=== PATIENT | female | born 1990 | race Caucasian/White ===

== ENCOUNTER → 2023-06-18 08:21 | Outpatient (BNVA) | payer OTHER, SELFPAY | PROVIDERS: Visit Provider Podiatrist Foot & Ankle Surgery | DX: M79.672 Pain in left foot (principal); Q66.89 Other specified congenital deformities of feet | CPT/HCPCS: 73630 ==

== ENCOUNTER 2023-07-23 14:35 | Outpatient (RCR) | payer OTHER, SELFPAY | END 2023-07-29 23:59 | disposition home or self-care (01) | LOC: SPT 14:35 | PROVIDERS: Visit Provider Registered Nurse | DX: R10.2 Pelvic and perineal pain (principal); N39.46 Mixed incontinence | CPT/HCPCS: 97110; 97161 ==

== ENCOUNTER 2023-07-30 06:00 | Outpatient (RCR) | payer OTHER, SELFPAY | END 2023-08-27 23:59 | disposition home or self-care (01) | LOC: SPT 06:00 | PROVIDERS: Visit Provider Registered Nurse | DX: R10.2 Pelvic and perineal pain (principal); N39.46 Mixed incontinence | CPT/HCPCS: 97110; 97530 ==

== ENCOUNTER 2023-08-27 11:53 | Oncology outpatient (recurring) (ONCR) | payer OTHER, SELFPAY ==
[2023-08-30 05:39] LABS: Beta 2 Glycoprotein IGA <2.0 U/mL (<20.0); Beta 2 Glycoprotein IGG <2.0 U/mL (<20.0); Beta 2 Glycoprotein IGM <2.0 U/mL (<20.0)
[2023-08-31 10:39] LABS: PTT-LA-Screen 30 sec (< OR = 40)
[2023-08-31 13:49] LABS: CARDIOLIPIN AB (IGA) <2.0 APL-U/mL; CARDIOLIPIN AB (IGG) <2.0 GPL-U/mL; CARDIOLIPIN AB (IGM) <2.0 MPL-U/mL
== END 2023-08-27 23:59 | disposition home or self-care (01) ==
PROVIDERS: Visit Provider Internal Medicine Medical Oncology
DX: Z86.718 Personal history of other venous thrombosis and embolism (principal)
CPT/HCPCS: 36415; 85613; 85730; 86146; 86147

== ENCOUNTER 2023-08-28 06:00 | Outpatient (RCR) | payer OTHER, SELFPAY | END 2023-09-27 23:59 | disposition home or self-care (01) | LOC: SPT 06:00 | PROVIDERS: PCP Registered Nurse; Visit Provider Registered Nurse | DX: R10.2 Pelvic and perineal pain (principal); N39.46 Mixed incontinence | CPT/HCPCS: 97110; 97530 ==

== ENCOUNTER 2023-09-02 06:36 | Day surgery (SDC) | payer OTHER, SELFPAY ==
[2023-09-02] VITALS (10 sets, daily range): BP systolic 106–124; BP diastolic 63–79; PULSE 60–82; RESP 12–18; TEMP 35.6–36.2; O2SAT 95–100; BMI 41.9
[2023-09-02 07:03] LABS: OR HCG Qualitative Urine Negative (Negative)
[2023-09-02] MEDS: sodium chloride 0.9% 1,000 ML 30 ML IV (07:22)
[2023-09-02] MEDS: gabapentin 300 mg Capsule PO (07:23)
[2023-09-02] MEDS: acetaminophen 1,000 MG/100 ML PIGGYBACK 400 MG IV (07:23)
--- NOTE | 2023-09-02 07:27 | ANES.PREANE2 ---
Pre-Anesthetic Assessment Height/Weight: Height 1.68 m Weight 117.934 kg Temp Pulse Resp BP Pulse Ox O2 Del Method 96.0 F L 82 18 124/79 97 Room Air 09/02/23 06:55 09/02/23 06:55 09/02/23 06:55 09/02/23 06:55 09/02/23 06:55 09/02/23 06:57 Preop Diagnosis: Tarsal coalition left foot Operation Date: 09/02/23 08:15 Proposed Procedures p Revision of Calcaneonavicular Coalition Resection(Not Applicable) - Dontae Angelo DPM Last intake: Intake Last Liquid Date 09/01/23 Last Liquid Time 20:00 Last Solid Date 09/01/23 Last Solid Time 20:00 Social No tobacco Exam alert, oriented x 3, clear to auscultation bilaterally and regular rate & rhythm Airway Submandibular: within normal limits Cervical ROM: within normal limits Mallampati: Class I History/ROS No significant history except as noted GI None reported Anesthetic Plan ASA status: 2 Anesthesia: General and Regional (specify below) Other: popliteal block for post op pain Medications/Allergies Home Medications Medication Instructions Recorded Confirmed Last Taken Type acetaminophen 500 mg tablet 1,000 mg PO Q6H PRN fever or pain 12/23/21 09/01/23 Unknown History fexofenadine 180 mg tablet 180 mg PO DAILY PRN Allergic 07/22/22 09/01/23 Unknown History (Flora Allergy) Symptoms crutches #1 ea 08/27/23 08/28/23 Unknown Rx aspirin 81 mg tablet,delayed 81 mg PO DAILY 08/28/23 09/01/23 Unknown History release (Adult Aspirin Regimen) fluoxetine 20 mg capsule (Prozac) 20 mg PO DAILY #30 caps 08/28/23 09/01/23 09/01/23 Rx fluoxetine 40 mg capsule (Prozac) 40 mg PO DAILY #30 caps 08/28/23 09/01/23 Unknown Rx trazodone 50 mg tablet 100 mg (2 x 50 mg) PO .HS PRN 08/28/23 09/01/23 08/31/23 Rx insomnia #60 tabs melatonin 10 mg tablet 10 mg PO DAILY 09/01/23 09/01/23 08/31/23 History propranolol 10 mg tablet 10 mg PO BID PRN Anxiety 09/01/23 09/01/23 09/01/23 History Allergies Allergy/AdvReac Type Severity Reaction Status Date / Time Opioids - Morphine Analogues Allergy Mild Swelling Verified 09/01/23 12:55 Penicillins Allergy Unknown Unknown Verified 09/01/23 12:55 hydromorphone [From Dilaudid] Allergy Unknown Verified 09/01/23 13:07 pseudoephedrine Allergy ADR-Itching Verified 09/02/23 07:05 [From Sudafed] Current Medications Generic Name Dose Route Start Last Admin Trade Name Freq PRN Reason Stop Dose Admin Sodium Chloride 1,000 mls @ 30 mls/hr 09/02/23 07:00 09/02/23 07:22 Sodium Chloride 0.9% IV 09/03/23 06:59 30 mls/hr .Q24H PERLITA Administration PFSH Anesthesia Medical History Chronic migraine Irritable bowel syndrome History of TIA (transient ischemic attack) in March 2022 during first trimester Patent foramen ovale with associated atrial septal aneurysm Superficial thrombophlebitis History of superficial thrombophlebitis of the left arm at age 14 Anxiety and depression Psychiatric care Surgical History Status post right foot surgery (2006) Status post left foot surgery (2007) History of sinus surgery (2009) Social History Smoking and tobacco/nicotine status: never used tobacco/nicotine Second hand smoke exposure: No Alcohol intake: former Year of sobriety/quit date alcohol: 2014 Substance/Drug Use: never Data Anesthesia Cardiac Studies: No Data to Display
--- NOTE | 2023-09-02 07:34 | W.PM.OPSUD ---
Surgery/Procedure H&P Update DATE OF PROCEDURE: September 02, 2023 DATE H&P PERFORMED: 08/27/23 H&P UPDATE INFORMATION: I have reviewed H&P completed within last 30 days, I have examined patient prior to procedure, No changes to prior documentation and H&P is in [facility] EMR on date indicated PREOP DIAGNOSIS: Tarsal coalition left foot PLANNED PROCEDURE: Operation Date: 09/02/23 08:15 Proposed Procedures p Revision of Calcaneonavicular Coalition Resection(Not Applicable) - Dontae Angelo DPM
[2023-09-02] MEDS: vancomycin 1,000 MG in sodium chloride 0.9% 250 ML 250 MG IV (08:09)
--- NOTE | 2023-09-02 08:24 | ANES.PROC ---
Anesthesia Procedures Procedure/Date: 09/02/23 Nerve Block ^: Nerve Block 1: Nerve block location: popliteal Anesthesia monitors applied: pulse oximetry, EKG, BP cuff and oxygen Nerve block position: supine Amount of anesthesia used (mL): 30 Ultrasound used to: recognize landmarks Nerve Stimulator Used?: No Complications: none Additional Comments: 0.5 % ropivicaine used under ultrasound guidance
--- NOTE | 2023-09-02 09:14 | P.BOP_ITS ---
Date of procedure: 09/02/2023 Surgeon name: Diane JoshiPJaylene Special Client Bus Driver(s) name(s): Sameera BROWN Procedure(s) performed: Calcaneonavicular coalition resection left foot Description of findings: Recurrence of osseous growth at the site of calcaneonavicular coalition previously resected Estimated blood loss: 5 cc Tourniquet time: 43 minutes Specimen(s) removed: None Post-operative diagnosis: Recurrence of calcaneonavicular coalition left foot
--- NOTE | 2023-09-02 09:15 | PM.OP ---
Operative Report Date of procedure: September 02, 2023 Pre-op diagnosis: Calcaneonavicular coalition left foot Post-op diagnosis: Same Post-op findings: Recurrence of calcaneal navicular coalition left foot Procedure done: Calcaneal navicular coalition resection left foot CPT 59980 Implants: Bone wax Surgeon: Dontae Angelo DPM Center Medical Director: Sameera Estimated blood loss: 5 cc 43 minutes Complications: None Findings: See above Procedure: Patient is a 33-year-old female that has a history of recurrent calcaneonavicular coalition left foot. The patient has had the aforementioned chief complaint for some time. Conservative treatment measures have been attempted and the patient has opted for surgical intervention at this time. A lengthy discussion regarding the procedure, including risks and complications has been had with the patient and is noted in the recent clinic note. Written and verbal consent have been obtained. All patient questions have been answered to the patient?s satisfaction. No written or verbal guarantees have been given or implied. The patient has been NPO since midnight. The history has been reviewed and the history and physical is current. The signed consent was confirmed and placed in the patient chart. Patient imaging has been reviewed and is consistent with the diagnosis. Under mild sedation, the patient was brought into the operating room and placed on the table in the supine position. IV antibiotics were given by the anesthesia team as preoperative surgical prophylaxis. General sedation was then performed by the anesthesiateam. A popliteal block was performed by the anesthesia department. A pneumatic tourniquet was then placed about the left thigh. The operative extremity was then prepped and draped in the usual fashion. The extremity was then elevated and exsanguinated before the tourniquet was inflated to 325 mmHg. After inflation, the following procedure was then performed. Attention was directed to the lateral aspect of the left foot where a 5 cm incision was made overlying the sinus tarsi. This incision was made using a #15 blade. Dissection was carried down through subcutaneous the superficial fascia. Any bleeders were cauterized as necessary. The extensor digitorum brevis muscle belly was visualized and was incised proximally from its origin and was reflected distally to expose the underlying calcaneus. Dissection was carried out to expose the site of the calcaneonavicular coalition. There was noted to be an ossicle floating within the calcaneonavicular region with fibrous tissue this was excised using a combination of #15 blade and rongeur. Under direct visualization via fluoroscopy the calcaneonavicular coalition site was resected using quarter inch osteotome and rongeur. Adequate resection of the coalition was visualized clinically as well as with fluoroscopy the site was irrigated with copious muscle sterile saline. Bone wax was then implanted into the resection site to prevent regrowth of the coalition adjacent fat was then placed into the coalition resection site attention was then directed to closure. The extensor digitorum brevis muscle belly was reattached to its origin using 3-0 Vicryl followed by subcuticular closure with 4-0 Vicryl and subcuticular fashion and skin closure with 4-0 nylon in horizontal mattress fashion the tourniquet was let down good hyperemic response was noted all digits of the left foot. The incision was dressed with Xeroform, 4 x 4 gauze, Kerlix, Stu. Patient was placed in a cam boot. The patient tolerated the procedure and anesthesia well and without complication. The patient was transported from the operating room to the recovery room with vital signs stable and vascular status intact to all digits of the foot. The patient was given both written and verbal instructions to remain nonweightbearing to the operative extremity, to keep dressings/splint clean, dry and intact and to take pain medication as directed. The patient will follow-up in the outpatient setting at their scheduled appointment. The patient was discharged with my personal number and was instructed to call if any questions or issues should arise. They were discharged home once anesthesia criteria was met.
--- NOTE | 2023-09-02 15:06 | ANE.PACU2 ---
Inpatient post-anesthesia follow up: Vital signs: Temperature 97.1 F Pulse Rate 60 Respiratory Rate 16 Blood Pressure 113/78 Pulse Oximetry 98 Oxygen Delivery Me thod Room Air Oxygen Flow Rate 6 Fraction of Inspir ed Oxygen Hydration adequate: Yes Nausea and vomiting: No Mental status: Baseline Additional Comments: no apparent anesthetic complications noted
--- NOTE | 2023-09-03 | XR_ITS ---
WS: [id number] Left foot, C-arm fluoroscopy, 09/02/2023 Clinical Data: OR PICS Comparison: Left foot, 06/18/2023 Findings: Dr. Angelo removed bony material between the calcaneus, navicular and cuboid. Impression: Removal of bone material from left foot.
== END 2023-09-02 10:40 | disposition home or self-care (01) ==
PROVIDERS: PCP Registered Nurse; Visit Provider Podiatrist Foot & Ankle Surgery
PROC: (CPT 28116; principal; 2023-09-02 07:55)
DX: Q66.89 Other specified congenital deformities of feet (principal); Z79.82 Long term (current) use of aspirin; Z86.73 Personal history of transient ischemic attack (TIA), and cerebral infarction without residual deficits
CPT/HCPCS: 28116; 73620; 76000; 81025; 84703; J0131; J2250; J2405; J2704; J2795; J3010; J3370; J7030; J7050

== ENCOUNTER → 2023-10-01 11:03 | Outpatient (BNVA) | payer OTHER, SELFPAY | PROVIDERS: PCP Registered Nurse; Visit Provider Podiatrist Foot & Ankle Surgery | DX: Q66.82 Congenital vertical talus deformity, left foot | CPT/HCPCS: 73630 ==

== ENCOUNTER → 2024-10-25 11:04 | Outpatient (BNVA) | payer OTHER, SELFPAY | PROVIDERS: PCP Registered Nurse; Visit Provider Nurse Practitioner Psychiatric/Mental Health | DX: F41.1 Generalized anxiety disorder (principal); F33.1 Major depressive disorder, recurrent, moderate | CPT/HCPCS: 80061; 83036 ==

== ENCOUNTER → 2024-11-29 08:28 | Outpatient (BNVA) | payer MEDICAID, SELFPAY ==
[2024-10-28 15:58] VITALS: BP 128/73; BMI 41.8
== END ==
PROVIDERS: PCP Registered Nurse; Visit Provider Podiatrist Foot & Ankle Surgery
DX: M79.672 Pain in left foot (principal); Q66.89 Other specified congenital deformities of feet; M84.30XA Stress fracture, unspecified site, initial encounter for fracture
CPT/HCPCS: 73630

== ENCOUNTER 2024-12-08 06:50 | Outpatient (CLI) | payer MEDICAID, SELFPAY ==
[2024-10-28 15:58] VITALS: BP 128/73; BMI 41.8
--- NOTE | 2024-12-08 07:00 | CTR_ITS ---
PROCEDURE INFORMATION: Exam: CT Left Lower Extremity Without Contrast Exam date and time: 12/08/2024 7:22 AM Age: 34 years old Clinical indication: Ankle and foot; Prior surgery; Surgery date: 6+ months; Surgery type: Bilateral feet; Left lateral ankle pain x 1 year; Additional info: Tarsal coalition, evaluate cc joint for fracture/arthritis, evaluate cn TECHNIQUE: Imaging protocol: CT of the left lower extremity without contrast was performed. Radiation optimization: All CT scans at this facility use at least one of these dose optimization techniques: automated exposure control; mA and/or kV adjustment per patient size (includes targeted exams where dose is matched to clinical indication); or iterative reconstruction. COMPARISON: CR XR foot LT min 3V* [id number] 11/29/2024 8:38 AM RADIATION DOSE METRICS: Total DLP (mGy-cm): 153.18 FINDINGS: Bones/joints: No distinct talocalcaneal or calcaneocuboid coalition. Non-osseous cuboid-navicular coalition is present. Moderate degenerative change of the calcaneocuboid-navicular joint, with associated [id number] fragmentation. No acute fracture or malalignment. Mild scattered degenerative changes in the remainder foot. Small calcaneal and Achilles enthesophytes. Soft tissues: Mild soft tissue swelling around the ankle. No radiopaque foreign body or gas. CT/CT foot ankle LT wo con IMPRESSION: 1. No distinct talocalcaneal or calcaneocuboid coalition. Non-osseous cuboid-navicular coalition is present. 2. Moderate degenerative change of the calcaneocuboid-navicular joint, with associated [id number] fragmentation. 3. No acute fracture or malalignment. Mild scattered degenerative changes in the remainder foot.
== END 2024-12-08 06:51 | disposition home or self-care (01) ==
PROVIDERS: PCP Registered Nurse; Visit Provider Podiatrist Foot & Ankle Surgery
DX: Q66.89 Other specified congenital deformities of feet (principal)
CPT/HCPCS: 73700; 76377

== ENCOUNTER 2025-04-10 20:01 | Outpatient (CLI) | payer MEDICAID, SELFPAY ==
[2024-10-28 15:58] VITALS: BP 128/73; BMI 41.8
== END 2025-04-10 20:02 | disposition home or self-care (01) ==
LOC: SLEEP 20:02
PROVIDERS: PCP Registered Nurse; Referring Provider Registered Nurse; Visit Provider Internal Medicine Pulmonary Disease
DX: G47.33 Obstructive sleep apnea (adult) (pediatric) (principal)
CPT/HCPCS: 95811